=== PATIENT | male | born 1960 | race Caucasian/White ===

== ENCOUNTER 2022-12-03 18:00 | Inpatient (IN) | payer MEDICARE, OTHER ==
[2022-12-03] MEDS ORDERED: Acetaminophen 325 MG Tab PO ONE (18:11)
[2022-12-03] MEDS ORDERED: fentaNYL 50 MCG/ML SDV IVPUSH ONE (18:11)
[2022-12-03 19:00] LABS: CHLORIDE,CL 98 mmol/L (98-107); SODIUM,NA 139 mmol/L (136-145)
[2022-12-03 19:01] LABS: ANION GAP 12.9 mmol/L (5-15); ESTIMATED GFR 56 mL/min (>=60)
[2022-12-03] MEDS ORDERED: cefTRIAXone 2 GM Vial IVPUSH ONE (21:23)
[2022-12-03] MEDS ORDERED: Temazepam 15 MG Cap PO PRN (21:32)
[2022-12-03] MEDS ORDERED: Polyethylene Glycol 3350 Powder 17 GM Packet PO PRN (21:32)
[2022-12-03] MEDS ORDERED: Ondansetron 4 MG Tab.DIS PO PRN (21:32)
[2022-12-03] MEDS ORDERED: Ondansetron 4 MG/2 ML SDV IV PRN (21:32)
[2022-12-03] MEDS: Sodium Chloride 0.9% 1,000 ML IV SCH (21:37)
[2022-12-03] MEDS ORDERED: Cyclobenzaprine 10 MG Tab PO ONE (22:31)
[2022-12-03] MEDS: Acetaminophen/HYDROcodone 325-5 MG Tab PO PRN (22:42)
[2022-12-04] MEDS: HYDROmorphone 1 MG/ML Syringe IVPUSH PRN ×4 (01:49→21:42)
[2022-12-04] MEDS: Sodium Chloride 0.9% 1,000 ML IV SCH ×3 (05:46→23:41)
[2022-12-04] MEDS: Acetaminophen 325 MG Tab PO PRN ×4 (06:22→22:02)
[2022-12-04 08:30] LABS: ANION GAP 11.9 mmol/L (5-15)
[2022-12-04] MEDS ORDERED: Bisacodyl 10 MG Supp RECTAL ONE (08:59)
[2022-12-04] MEDS ORDERED: Non-Formulary Medication 1 Each (Nabumetone [Nabumetone] 500 MG Tablet) PO SCH (09:00)
[2022-12-04] MEDS ORDERED: cefTRIAXone 1 GM Vial IVPUSH SCH (09:00)
[2022-12-04] MEDS: Allopurinol 300 MG Tab PO SCH (09:23)
[2022-12-04] MEDS: buPROPion 100 MG Tab.SR PO SCH ×2 (09:23→21:41)
[2022-12-04] MEDS: Furosemide 40 MG Tab PO SCH ×2 (09:24→15:41)
[2022-12-04] MEDS: Metoprolol Succinate 50 MG Tab.ER PO SCH (09:24)
[2022-12-04] MEDS: Spironolactone 25 MG Tab PO SCH (09:24)
[2022-12-04] MEDS: Polyethylene Glycol 3350 Powder 17 GM Packet PO SCH (09:25)
[2022-12-04] MEDS: Lisinopril 10 MG Tab PO SCH (09:25)
[2022-12-04] MEDS ORDERED: Iopamidol 612 MG/ML 100 ML Bottle IVPUSH ONE (11:07)
[2022-12-04] MEDS: Meropenem 1 GM in Sodium Chloride 0.9% 100 ML IV SCH (17:56)
[2022-12-04] MEDS ORDERED: VANCOmycin 2 GM/400 ML 2 GM in Premix Bag 1 BAG IV ONE (18:00)
[2022-12-04] MEDS: oxyCODONE 5 MG Tab PO PRN (19:56)
[2022-12-05] MEDS: Meropenem 1 GM in Sodium Chloride 0.9% 100 ML IV SCH ×3 (01:39→18:24)
[2022-12-05] MEDS: HYDROmorphone 1 MG/ML Syringe IVPUSH PRN ×3 (02:05→17:18)
[2022-12-05] MEDS: Acetaminophen 325 MG Tab PO PRN ×2 (04:42→20:26)
[2022-12-05 08:19] LABS: ANION GAP 11.7 mmol/L (5-15)
[2022-12-05] MEDS: Sodium Chloride 0.9% 1,000 ML IV SCH ×2 (08:25→21:50)
[2022-12-05] MEDS: Metoprolol Succinate 50 MG Tab.ER PO SCH (09:05)
[2022-12-05] MEDS: Polyethylene Glycol 3350 Powder 17 GM Packet PO SCH (09:05)
[2022-12-05] MEDS: Furosemide 40 MG Tab PO SCH ×2 (09:09→14:59)
[2022-12-05] MEDS: Lisinopril 10 MG Tab PO SCH (09:09)
[2022-12-05] MEDS: buPROPion 100 MG Tab.SR PO SCH ×2 (09:09→20:29)
[2022-12-05] MEDS: Allopurinol 300 MG Tab PO SCH (09:12)
[2022-12-05] MEDS: Spironolactone 25 MG Tab PO SCH (09:16)
[2022-12-05] MEDS ORDERED: Magnesium Sulfate/Water 4 GM in Premix Bag 1 BAG IV ONE (09:29)
[2022-12-05] MEDS: Acetaminophen/HYDROcodone 325-5 MG Tab PO PRN (10:52)
[2022-12-05] MEDS: Cyclobenzaprine 10 MG Tab PO PRN ×2 (10:53→23:59)
[2022-12-05] MEDS ORDERED: Acetaminophen 325 MG Tab PO STA (12:37)
[2022-12-05] MEDS ORDERED: VANCOmycin 1.25 GM/250 ML 1.25 GM in Premix Bag 1 BAG IV SCH (18:00)
[2022-12-05] MEDS: oxyCODONE 5 MG Tab PO PRN (19:10)
[2022-12-06] MEDS: HYDROmorphone 1 MG/ML Syringe IVPUSH PRN ×2 (00:01→06:18)
[2022-12-06] MEDS: Acetaminophen 325 MG Tab PO PRN (00:01)
[2022-12-06] MEDS: Meropenem 1 GM in Sodium Chloride 0.9% 100 ML IV SCH ×2 (01:37→09:28)
[2022-12-06] MEDS: Sodium Chloride 0.9% 1,000 ML IV SCH (06:26)
[2022-12-06 07:19] LABS: ANION GAP 11.6 mmol/L (5-15)
[2022-12-06] MEDS ORDERED: Mineral Oil 133 ML BOTTLE RECTAL ONE (07:50)
[2022-12-06] MEDS: Acetaminophen/HYDROcodone 325-5 MG Tab PO PRN (09:49)
[2022-12-06] MEDS: Spironolactone 25 MG Tab PO SCH (10:59)
[2022-12-06] MEDS: Allopurinol 300 MG Tab PO SCH (10:59)
[2022-12-06] MEDS: Furosemide 40 MG Tab PO SCH (10:59)
[2022-12-06] MEDS: buPROPion 100 MG Tab.SR PO SCH (10:59)
[2022-12-06] MEDS: Polyethylene Glycol 3350 Powder 17 GM Packet PO SCH (11:00)
[2022-12-06] MEDS: Metoprolol Succinate 50 MG Tab.ER PO SCH (11:00)
[2022-12-06] MEDS: Lisinopril 10 MG Tab PO SCH (11:00)
[2022-12-06] MEDS ORDERED: VANCOmycin 2 GM/400 ML 400 ML IV SCH (12:00)
== END 2022-12-06 11:30 | disposition home or self-care (01) | DRG 872 ==
LOC: VM.ED 18:00 → VM.MS 21:25 → UNDOADMIN 21:25 → VM.MS 21:30
PROVIDERS: ADMIT Nurse Practitioner Family; ATTEND Nurse Practitioner Family
DX: A41.9 Sepsis, unspecified organism (principal); R50.9 Fever, unspecified; E78.2 Mixed hyperlipidemia; M54.50 Low back pain, unspecified; G89.29 Other chronic pain; E11.9 Type 2 diabetes mellitus without complications; M10.9 Gout, unspecified; M19.90 Unspecified osteoarthritis, unspecified site; E86.0 Dehydration; R53.1 Weakness; M54.9 Dorsalgia, unspecified; I10 Essential (primary) hypertension; Z98.890 Other specified postprocedural states; Z98.1 Arthrodesis status; Z87.891 Personal history of nicotine dependence
CPT/HCPCS: 36415; 51798; 70450; 71045; 72131; 74177; 80053; 80202; 81001; 83605; 83735; 84145; 85025; 86140; 87040; 96374; 96375; 99285-25; A9270-GY; J0696; J1170; J2185; J2405; J3010; J3370; J3475; J3490; J7030; J7050; Q9967